=== PATIENT | male | born 1960 | race Caucasian/White ===

== ENCOUNTER 2017-01-26 21:22 | Emergency (ER) | payer BC ==
--- NOTE | 2017-01-26 21:37 | EDPHY ---
H & P HPI/ROS: HPI CHIEF COMPLAINT: Left ear pain. HISTORY OF PRESENT ILLNESS: This patient is a very pleasant 56-year-old male, he presents emergency room with left ear pain. Patient states around 530 this evening he was jumping off a diving board did a 1-1/2 lip into the pool. He struck his head against the surface of the water. Most likely tilted to the left side. He immediately had left ear pain. The pain is continued. He does suffer from migraines and he thinks that it is starting to give him a migraine headache. Denies any visual disturbance of nausea vomiting or fever. Denies trouble swallowing. Pain is constant left inner ear throbbing in nature. He states that has had some clear watery drainage from it but no blood. Past Medical History: Migraine headaches Past Surgical History: No recent surgery Social History: Denies daily use drugs alcohol tobacco products. Family History: Noncontributory ROS REVIEW OF SYSTEMS: A comprehensive 10 point review of systems is otherwise negative aside from elements mentioned in the history of present illness. Exam Constitutional appears well nontoxic triage nursing summary reviewed, vital signs reviewed, awake/alert. Eyes right TM and ear canal normal, left TM appears blood tinged, there is some redness present, ear canal normal, no foreign body or fluid seen in the ear canal, I do not appreciate a perforation of the eardrum, however does appear inflamed and red and blood present. normal conjunctivae and sclera, EOMI, PERRLA. HENT normal inspection, atraumatic, moist mucus membranes, no epistaxis, neck supple/ no meningismus, no raccoon eyes. Respiratory clear to auscultation bilaterally, normal breath sounds, no respiratory distress, no wheezing. Cardiovascular rate normal, regular rhythm, no murmur, no edema, distal pulses normal. Gastrointestinal soft, non-tender, no rebound, no guarding, normal bowel sounds, no distension, no pulsatile mass. Genitourinary no CVA tenderness. Musculoskeletal no midline vertebral tenderness, full range of motion, no calf swelling, no tenderness of extremities, no meningismus, good pulses, neurovascularly intact. Skin pink, warm, & dry, no rash, skin atraumatic. Neurologic awake, alert and oriented x 3, AAOx3, moves all 4 extremities equally, motor intact, sensory intact, CN II-XII intact, normal cerebellar, normal vision, normal speech. Psychiatric normal mood/affect. Heme/Lymph/Immune no lymphadenopathy. Differential Diagnosis: Includes but is not limited to in a particular order ruptured left TM, trauma to the left TM. Medical Decision Making: This patient most likely has either a small left TM perforation, I do not visualize a hole in the TM or laceration, however most likely he has trauma to the TM from mechanism of jumping into the pool either direct water trauma or pressure from the force of hitting the surface of the water.. He drove here so is decline narcotic pain medicine here in the emergency room however he is agreeable for anti-inflammatory pain medicine. I will start him on amoxicillin orally, ibuprofen 800 mg here in emergency room. He will be referred to ENT. He should call there on Friday for follow-up appointment. Additionally I will allow him to have a prescription for Straughn. Re-evaluation: Prescription given for Straughn, amoxicillin. ENT follow-up. Source: Patient, EMS - Medical/Surgical History Hx Diabetes: No Constitutional: Initial Vital Signs Temperature (C) 37 C 01/26/17 21:36 Heart Rate 75 01/26/17 21:36 Respiratory Rate 18 01/26/17 21:36 Blood Pressure 148/100 H 01/26/17 21:36 O2 Sat (%) 96 01/26/17 21:36 O2 Delivery Mode Room Air Allergies/Adverse Reactions: No Known Allergies Allergy (Unverified 06/08/13 14:45) Home Medications: Medication Instructions Recorded Amoxicillin 500 mg PO TID 7 Days 01/26/17 Cialis 01/26/17 Hydrocodone/APAP 5/325 [Straughn 1 - 2 tab PO Q4H PRN #10 tab 01/26/17 5/325] IMITREX 01/26/17 Ibuprofen [Motrin (*)] 800 mg PO Q6-8PRN #14 tab 01/26/17 Departure - Departure Disposition: Home, Routine, Self-Care Clinical Impression: Earache on left Condition: Good Instructions: Earache (ED) Additional Instructions: 1. Take anti-inflammatory pain medicine for mild pain. 2. Take narcotic pain medicine be have severe pain. 3. Please take antibiotic as prescribed 4. Follow up with ENT please call their for an appointment. You can call there tomorrow see if they are available or open. Referrals: NONE *PRIMARY CARE P,. [Primary Care Provider] - As per Instructions Lucho Palma MD [Medical Doctor] - As per Instructions Prescriptions: Amoxicillin 500 mg PO TID 7 Days Hydrocodone/APAP 5/325 [Straughn 5/325] 1 - 2 tab PO Q4H PRN #10 tab PRN Reason: Pain, Moderate Ibuprofen [Motrin (*)] 800 mg PO Q6-8PRN #14 tab
[2017-01-26 21:39] VITALS: BP 148/100; PULSE 75; RESP 18; TEMP 98.6; O2SAT 96
[2017-01-26] MEDS ORDERED: IBUPROFEN 200 MG TAB PO ONE (22:04)
== END 2017-01-26 22:27 | disposition home or self-care (01) ==
DX: H92.02 Otalgia, left ear (principal)

== ENCOUNTER → 2017-02-07 | Outpatient (CLI) | payer BC | LOC: FIMAGING 16:23 | PROVIDERS: ATTEND Family Medicine | DX: N50.3 Cyst of epididymis (principal); I86.1 Scrotal varices ==